=== PATIENT | female | born 1965 | race Caucasian/White ===

== ENCOUNTER 2017-02-06 16:44 | Inpatient (IN) ==
[2017-02-06] MEDS ORDERED: 0.9 % Sodium Chloride 2,000 ML IV ONE (17:59)
[2017-02-06] MEDS ORDERED: Ibuprofen 600 MG TABLET PO ONE (17:59)
[2017-02-06] MEDS ORDERED: Ipratropium/Albuterol Neb 3 ML IH ONE (18:02)
--- NOTE | 2017-02-06 18:15 | Emergency Department Note ---
Disposition Clinical Impression: Sepsis Qualifiers: Sepsis type: sepsis due to unspecified organism Qualified Code(s): A41.9 - Sepsis, unspecified organism UTI (urinary tract infection) Qualifiers: Urinary tract infection type: acute cystitis Hematuria presence: with hematuria Qualified Code(s): N30.01 - Acute cystitis with hematuria Disposition: Admitted As Inpatient Condition: Fair Referrals: Vern Carmichael, [Primary Care Provider] - Forms: ED Satisfaction Letter Time of Disposition: 19:51 SOB HPI - General Chief Complaint: ED Fever Stated Complaint: "thinks she has the flu and UTI" Time Seen by Provider: 02/06/17 17:36 Source: patient Mode of arrival: ambulatory Limitations: no limitations Nursing Notes Reviewed: Yes Vital Signs Reviewed: Yes - History of Present Illness 51-year-old female presents with worsening fever, cough that is nonproductive, shortness of breath, body aches and malaise for the last 3-5 days. She states that she has felt ill for the last month, but did feel better prior to getting worse again over the last week. She has no diabetes or immunocompromise. She has notes history of asthma. She has tried Tamiflu prescribed by her physician for suspected influenza, but was unable to keep it down due to emesis. She denies any abdominal pain. She does admit to dysuria that is similar to prior episodes of urinary tract infection. She denies any rashes or edema. She denies history of DVT or PE. Pt Subjective Complaint: shortness of breath - Related Data Home Medications Medication Instructions Recorded Confirmed Atorvastatin [Lipitor] 40 mg PO HS 05/23/16 02/06/17 Diclofenac Potassium 50 mg PO TID PRN 05/23/16 02/06/17 Fluticasone Propionate Nasal 2 spray NS DAILY PRN 05/23/16 02/06/17 [Flonase] Insulin Glargine,Hum.rec.anlog 22 unit SQ DAILY 05/23/16 02/06/17 [Lantus Solostar] Multivitamin [Multivitamins] 1 tab PO DAILY 05/23/16 02/06/17 Albuterol Sulfate [Proventil Hfa] 1 - 2 puff IH Q6H PRN 02/06/17 02/06/17 Budesonide/Formoterol 80/4.5 2 puff IH BID 02/06/17 02/06/17 [Symbicort 80/4.5] Dicyclomine [Bentyl] 10 mg PO QID PRN 02/06/17 02/06/17 Ketoconazole Shampoo [Nizoral 1 appl TP 3XW 02/06/17 02/06/17 Shampoo] Tolterodine Tartrate [Detrol] 1 mg PO BID 02/06/17 02/06/17 Valsartan/Hydrochlorothiazide 1 each PO DAILY 02/06/17 02/06/17 [Diovan Hct 320-25 mg Tablet] Allergies Allergy/AdvReac Type Severity Reaction Status Date / Time Oxycodone [From Percocet] AdvReac Fainting Verified 02/06/17 17:30 All systems ED: reviewed and negative except as stated. Past Medical History - Past Medical History Attestation: Yes The following information was validated with the patient. Source: patient Medical history: Reports: asthma, diabetes, hyperlipidemia, hypertension Psychiatric history: Reports: no psych history - Social History Smoking Status: Current every day smoker Smokeless Tobacco Status: No Alcohol use: Reports: occasionally Drug use: Reports: none Physical Exam - Head Head exam: atraumatic, normocephalic, normal inspection - Eye Eye exam: Present: normal appearance, PERRL, EOMI - ENT ENT exam: normal exam, normal oropharynx, mucous membranes moist - Neck Neck exam: Present: normal inspection, full ROM, trachea midline - Chest Chest inspection: Present: normal inspection, symmetric chest wall rise - Respiratory Mild rhonchi at the right base. Mild end expiratory wheeze bilaterally. No rales. Cardiovascular Cardiovascular exam: Present: Tachycardic, normal rhythm, normal heart sounds - Abdominal Exam Abdominal exam: Present: soft, Non-Tender. Absent: tenderness, distention, guarding, rebound, rigidity - Extremities Exam Extremities exam: Present: normal inspection, full ROM - Expanded Lower Extremity Exam Hip/Pelvis exam: Present: normal inspection, full ROM - Back Exam Back exam: Present: normal inspection, full ROM. Absent: tenderness, CVA tenderness (R), CVA tenderness (L) - Neurological Exam Neurological exam: Present: alert, oriented X3, CN II-XII intact - Psychiatric Psychiatric exam: Present: normal affect, normal mood - Skin Skin exam: Present: warm, dry, intact, normal color - General Limitations: no limitations General appearance: alert Course - Reevaluation(s) Reevaluation #1: Patient with urinary tract infection on labs. She is feeling much better after IV fluids and ibuprofen. No CVA tenderness. No abdominal tenderness. No colicky pain. The patient started on Rocephin. Admitted to the hospitalist for further management. Time: 21:10 Vital Signs Temperature 102.6 F H 02/06/17 17:31 Pulse Rate 128 02/06/17 17:31 Respiratory Rate 26 02/06/17 17:31 Blood Pressure 170/81 02/06/17 17:31 O2 Sat by Pulse Oximetry 91 L 02/06/17 17:31 Temperature 102.6 F H 02/06/17 17:31 Pulse Rate 85 02/06/17 20:06 Respiratory Rate 16 02/06/17 20:06 Blood Pressure 110/46 02/06/17 20:06 O2 Sat by Pulse Oximetry 98 02/06/17 20:06 Oxygen Delivery Oxygen Delivery Room Air Shortness of Breath/Dyspnea - Lab Data Result diagrams: 02/06/17 18:30 02/06/17 18:30 Lab Results 02/06/17 02/06/17 02/06/17 Range/Units 17:50 18:30 18:30 WBC 11.5 H (4.3-11.1) K/mcL RBC 5.29 H (3.82-4.97) M/mcL Hgb 15.6 H (11.5-15.4) g/dL Hct 45.4 H (35.3-44.9) % MCV 85.8 (83.0-100.0) fL MCH 29.5 (28.0-33.3) pg MCHC 34.4 (31.6-35.5) g/dL RDW 12.0 (11.5-14.5) % Plt Count 173 (140-400) K/mcL MPV 10.8 (9.4-12.4) fL Immature Gran % 0.7 (0-4) % Seg Neutrophils % 80.2 % Lymphocytes % 7.9 % Monocytes % 10.9 % Eosinophils % 0.0 % Basophils % 0.3 % Neutrophils # 9.2 H (1.6-8.9) K/mcL Lymphocytes # 0.9 (0.6-4.6) K/mcL Monocytes # 1.3 (0.0-1.3) K/mcL Eosinophils # 0.0 (0.0-0.6) K/mcL Basophils # 0.0 (0.0-0.2) K/mcL VBG pH (7.32-7.42) pH Units VBG pCO2 (41-51) mmHg VBG pO2 (25-40) mmHg VBG HCO3 (21-27) mEq/L Sodium 135 L (136-145) mEq/L Potassium 3.9 (3.5-4.5) mEq/L Chloride 96 L (98-109) mEq/L Carbon Dioxide 24 (19-29) mEq/L BUN 19 (7-20) mg/dL Creatinine 1.15 H (0.57-1.11) mg/dL Est GFR ( Amer) > 60 (> 60) Est GFR (Non-Af Amer) 50 L (> 60) BUN/Creatinine Ratio 17 (6-26) Glucose 392 H (70-99) mg/dL Calculated Osmolality 299 (280-300) Lactic Acid (0.5-2.2) mmol/L Calcium 8.7 (8.6-10.8) mg/dL Urine Color Dark Yellow (Yellow) Urine Clarity Cloudy A (Clear) Urine pH 6.0 (5.0-8.0) pH Units Ur Specific [place] > 1.030 H (1.010-1.025) Urine Protein 100 H (Neg-Trace) mg/dL Urine Glucose (UA) >=1000 H (Normal) mg/dL Urine Ketones 80 H (Negative) mg/dL Urine Blood Small H (Negative) Urine Nitrite Positive A (Negative) Urine Bilirubin Small H (Negative) Urine Urobilinogen Normal (Normal) mg/dL Ur Leukocyte Esterase Moderate H (Negative) Urine Microscopic RBC 5-15 H (0-3) per hpf Urine Microscopic WBC TNTC H (0-3) per hpf Ur Squamous Epith Cells Many H (None-Few) per lpf Urine Bacteria Many H (None-Few) per hpf Hyaline Casts None Seen (None-Few) per lpf Urine Yeast Few H (None Seen) per hpf Ur Culture Indicated? YES A (NO) 02/06/17 02/06/17 Range/Units 18:30 18:30 WBC (4.3-11.1) K/mcL RBC (3.82-4.97) M/mcL Hgb (11.5-15.4) g/dL Hct (35.3-44.9) % MCV (83.0-100.0) fL MCH (28.0-33.3) pg MCHC (31.6-35.5) g/dL RDW (11.5-14.5) % Plt Count (140-400) K/mcL MPV (9.4-12.4) fL Immature Gran % (0-4) % Seg Neutrophils % % Lymphocytes % % Monocytes % % Eosinophils % % Basophils % % Neutrophils # (1.6-8.9) K/mcL Lymphocytes # (0.6-4.6) K/mcL Monocytes # (0.0-1.3) K/mcL Eosinophils # (0.0-0.6) K/mcL Basophils # (0.0-0.2) K/mcL VBG pH 7.47 H (7.32-7.42) pH Units VBG pCO2 41 (41-51) mmHg VBG pO2 50 H (25-40) mmHg VBG HCO3 29.8 H (21-27) mEq/L Sodium (136-145) mEq/L Potassium (3.5-4.5) mEq/L Chloride (98-109) mEq/L Carbon Dioxide (19-29) mEq/L BUN (7-20) mg/dL Creatinine (0.57-1.11) mg/dL Est GFR ( Amer) (> 60) Est GFR (Non-Af Amer) (> 60) BUN/Creatinine Ratio (6-26) Glucose (70-99) mg/dL Calculated Osmolality (280-300) Lactic Acid 1.3 (0.5-2.2) mmol/L Calcium (8.6-10.8) mg/dL Urine Color (Yellow) Urine Clarity (Clear) Urine pH (5.0-8.0) pH Units Ur Specific [place] (1.010-1.025) Urine Protein (Neg-Trace) mg/dL Urine Glucose (UA) (Normal) mg/dL Urine Ketones (Negative) mg/dL Urine Blood (Negative) Urine Nitrite (Negative) Urine Bilirubin (Negative) Urine Urobilinogen (Normal) mg/dL Ur Leukocyte Esterase (Negative) Urine Microscopic RBC (0-3) per hpf Urine Microscopic WBC (0-3) per hpf Ur Squamous Epith Cells (None-Few) per lpf Urine Bacteria (None-Few) per hpf Hyaline Casts (None-Few) per lpf Urine Yeast (None Seen) per hpf Ur Culture Indicated? (NO) - EKG Data EKG attestation: Yes I reviewed and interpreted this EKG. EKG results narrative: Sinus tachycardia at 111 with normal axis and intervals. No ST elevation or depression. There is incomplete right bundle-branch block. No pathologic Q waves. No EKG available. Attestation Statement - Attestation Attestation: I examined this patient and my medical decision-making was reviewed with the BUSINESS ADMINISTRATOR/PA/Advanced Practice Nurse/Resident Physician. I agree with the documented findings, disposition and treatment plan as described except to the extent set forth below.
[2017-02-06 18:24] LABS: Bilirubin,Urine Small (Negative); Blood,Urine Small (Negative); Clarity,Urine Cloudy (Clear); Color,Urine Dark Yellow (Yellow); Glucose,Urine (UA) >=1000 mg/dL (Normal); Ketones,Urine 80 mg/dL (Negative); Leukocyte Esterase,Urine Moderate (Negative); Nitrite,Urine Positive (Negative); Protein,Urine 100 mg/dL (Neg-Trace); Specific Gravity,Urine > 1.030 (1.010-1.025); Urobilinogen,Urine Normal (Normal)
[2017-02-06 18:38] LABS: Bacteria,Urine Many per hpf (None-Few); Hyaline Casts,Urine None Seen per lpf (None-Few); Squamous Epithelial Cell,Urine Many per lpf (None-Few); WBC,Urine TNTC per hpf (0-3)
[2017-02-06 18:39] LABS: Basophils % 0.3 %; Hematocrit 45.4 % (35.3-44.9); Hemoglobin 15.6 g/dL (11.5-15.4); Immature Granulocytes % 0.7 % (0-4); Lymphocytes # 0.9 K/mcL (0.6-4.6); Lymphocytes % 7.9 %; Mean Corpuscular HGB Conc 34.4 g/dL (31.6-35.5); Mean Corpuscular Hemoglobin 29.5 pg (28.0-33.3); Mean Corpuscular Volume 85.8 fL (83.0-100.0); Mean Platelet Volume 10.8 fL (9.4-12.4); Monocytes # 1.3 K/mcL (0.0-1.3); Monocytes % 10.9 %; Platelet Count 173 K/mcL (140-400); Red Blood Count 5.29 M/mcL (3.82-4.97); Segmented Neutrophils % 80.2 %
[2017-02-06 18:52] LABS: BUN/Creatinine Ratio 17 (6-26); Blood Urea Nitrogen 19 mg/dL (7-20); Calcium 8.7 mg/dL (8.6-10.8); Carbon Dioxide 24 mEq/L (19-29); Chloride 96 mEq/L (98-109); Glucose 392 mg/dL (70-99); Osmolality,Calculated 299 (280-300); Potassium 3.9 mEq/L (3.5-4.5); Sodium 135 mEq/L (136-145); eGFR For African Americans > 60 (> 60); eGFR For Non-African Americans 50 (> 60)
[2017-02-06 18:58] LABS: Yeast,Urine Few per hpf (None Seen)
[2017-02-06 18:59] LABS: VBG HCO3 29.8 mEq/L (21-27); VBG PH 7.47 pH Units (7.32-7.42)
[2017-02-06 19:10] LABS: Neutrophils # 9.2 K/mcL (1.6-8.9)
[2017-02-06] MEDS ORDERED: 0.9 % Sodium Chloride 1,000 ML IV ONE (19:26)
[2017-02-07] MEDS ORDERED: Naloxone 0.4 MG/ML INJ IVP PRN (04:08)
[2017-02-07] MEDS ORDERED: MOM Conc 10 ML UD.LIQ PO PRN (04:23)
[2017-02-07] MEDS ORDERED: Acetaminophen 325 MG TABLET PO PRN ×2 (04:23→11:47)
[2017-02-07] MEDS ORDERED: Ondansetron ODT 4 MG TAB.RAPDIS SL PRN (04:23)
[2017-02-07] MEDS ORDERED: *HR* HYDROcodone/Acet 5/325 mg TABLET PO PRN (04:25)
[2017-02-07] MEDS ORDERED: Ipratropium/Albuterol Neb 3 ML IH PRN (04:27)
[2017-02-07] MEDS ORDERED: Benzonatate 100 MG CAPSULE PO PRN (04:28)
[2017-02-07] MEDS ORDERED: Fluticasone Propionate Nasal 50 MCG/SPRAY BOTTLE NS PRN (04:28)
[2017-02-07] MEDS ORDERED: *HR* Dextrose 50 % in Water (Syg) 50 ML SYRINGE IVP PRN (04:31)
[2017-02-07] MEDS ORDERED: Dextrose Gel 15 GM PO PRN ×2 (04:31)
[2017-02-07] MEDS ORDERED: D5% in Water 1,000 ML IV PRN (04:31)
--- NOTE | 2017-02-07 04:53 | Event Note ---
Date of Encounter: 02/07/17 Time of Encounter: 04:49 Patient seen and examined his lpn or medical assistant. Patient presents with UTI with sepsis. No CVA tenderness. She is hemodynamically stable after 2 L of normal saline. Start ceftriaxone. Check urine and blood cultures. She was febrile 102.6 admission.
[2017-02-07] MEDS: *HR* Heparin 5,000 UNIT/ML VIAL SQ SCH ×3 (05:23→20:44)
[2017-02-07 06:05] LABS: Basophils % 0.4 %; Eosinophils # 0.1 K/mcL (0.0-0.6); Eosinophils % 0.8 %; Hemoglobin 14.6 g/dL (11.5-15.4); Hemoglobin A1C 13.7 %; Immature Granulocytes % 0.5 % (0-4); Lymphocytes # 1.5 K/mcL (0.6-4.6); Mean Corpuscular HGB Conc 33.2 g/dL (31.6-35.5); Mean Corpuscular Hemoglobin 28.9 pg (28.0-33.3); Mean Platelet Volume 10.5 fL (9.4-12.4); Monocytes % 10.6 %; Neutrophils # 6.7 K/mcL (1.6-8.9); Platelet Count 167 K/mcL (140-400); Red Blood Count 5.06 M/mcL (3.82-4.97); Red Cell Distribution Width 12.2 % (11.5-14.5); Segmented Neutrophils % 71.7 %
[2017-02-07 06:07] LABS: BUN/Creatinine Ratio 21 (6-26); Blood Urea Nitrogen 19 mg/dL (7-20); Calcium 8.3 mg/dL (8.6-10.8); Carbon Dioxide 28 mEq/L (19-29); Chloride 100 mEq/L (98-109); Glucose 283 mg/dL (70-99); Magnesium 1.3 mg/dL (1.6-2.6); Osmolality,Calculated 297 (280-300); Phosphorous 2.6 mg/dL (2.3-4.7); Potassium 3.7 mEq/L (3.5-4.5); Sodium 137 mEq/L (136-145); eGFR For African Americans > 60 (> 60); eGFR For Non-African Americans > 60 (> 60)
[2017-02-07] MEDS: 0.9 % Sodium Chloride 1,000 ML IVC SCH ×3 (06:23→23:50)
--- NOTE | 2017-02-07 06:27 | Internal Med History&Physical ---
Date of Encounter: 02/07/17 Time of Encounter: 06:17 Assessment and Plan (1) UTI (urinary tract infection) Current visit: Yes Status: Acute Patient were saying fever and chills over the last week. Patient reports increased pressure with urination, increase frequency, and urinary incontinence. UA cloudy and positive for 4 nitrates, RBCs, WBCs, and bacteria. No CVA tenderness on exam. Will treat urinary tract infection with ceftriaxone. 1. Ceftriaxone 1g daily 2. Urine culture pending 3. Monitor vitals and labs Qualifiers: Urinary tract infection type: acute cystitis Hematuria presence: with hematuria Qualified Code(s): N30.01 - Acute cystitis with hematuria (2) Sepsis Current visit: Yes Status: Acute Patient presented with elevated temperature, tachycardia,, and tachypnea. With UTI, patient meets criteria for sepsis. Patient given 2L IV fluids in the ED. Lactic acid 1.3. Will continue maintenance IV fluids and treat underlying infection. 1. Monitor vital signs 2. Maintenance IV fluids 3. Antibiotics Qualifiers: Sepsis type: sepsis due to unspecified organism Qualified Code(s): A41.9 - Sepsis, unspecified organism (3) Upper respiratory infection Current visit: Yes Status: Acute Patient with nonproductive cough, runny nose, congestion, and malaise. Flu swab negative. Patient likely has a viral upper respiratory infection. Will provide supportive care. Qualifiers: URI type: unspecified viral URI Qualified Code(s): J06.9 - Acute upper respiratory infection, unspecified; B97.89 - Other viral agents as the cause of diseases classified elsewhere (4) Acute kidney injury Current visit: Yes Status: Acute Patient with creatinine of 1.13. She denies any history of kidney disease. Will give IVF fluids and monitor. 1. IVF 2. Monitor kidny function 3. Avoid nephrotoxic drugs. (5) Diabetes Current visit: Yes Status: Acute Patient with type II diabetes. Patient takes basal insulin of 22 units at home daily. Inpatient will check blood glucose with meals and at bedtime. We will give patient lower basal insulin dose with low-dose sliding scale intensity for correction. 1. Accuchecks ACHS 2. Levemir 11 units daily 3. Low intensity sliding scale insulin Qualifiers: Diabetes mellitus type: type 2 Diabetes mellitus complication status: with unspecified complications Diabetes mellitus terminal worker insulin use: with terminal worker use Qualified Code(s): E11.8 - Type 2 diabetes mellitus with unspecified complications; Z79.4 - retirement (current) use of insulin (6) Hypertension Current visit: Yes Status: Acute Shuttle history of hypertension. Currently patient's blood pressures have been on the lower side. We will hold home hypertension medications at this time and continue to monitor blood pressures 1. Monitor blood pressures 2. Restart home blood pressure medications when appropriate. Qualifiers: Hypertension type: essential hypertension Qualified Code(s): I10 - Essential (primary) hypertension (7) COPD (chronic obstructive pulmonary disease) Current visit: Yes Status: Acute She reports that she has never been diagnosed with COPD. However patient is a current smoker, and does use COPD medications at home. We will continue home medications. Duoneb breathing treatments as needed. 1. Continue home medications 2. Duoneb breathing treatments prn 3. Supplemental oxygen as needed Qualifiers: COPD type: unspecified COPD Qualified Code(s): J44.9 - Chronic obstructive pulmonary disease, unspecified (8) Tobacco use Current visit: Yes Status: Acute (9) DVT prophylaxis Current visit: Yes Status: Acute Heparin for DVT prophylaxis Internal Medicine - H&P: HPI Chief complaint: Flu like symptoms Admitted From: Emergency Dept Plans for Post Hospital Care: Home History of present illness: Ms. Bob is a 51 year old female with past medical history including asthma, diabetes, hyerlipidemia, hypertension, and current tobacco use. Patient presents the emergency department today with worsening nonproductive cough, fever, and body aches for the past 3 days. Patient reports that for the past month she has been feeling ill however she was starting to improve until things worsened over the last couple days. Patient reports fever chills, headache, runny nose, nonproductive cough, all over body aches, nausea and vomiting, as well as increased pressure with urination, increase urinary frequency, and urinary incontinence. She reports that she has been unable to take any medications Friday because of the nausea and vomiting. Patient denies any vision changes, sore throat, shortness of breath, chest pain, abdominal pain, changes in bowel function. Patient attempted to take Tamiflu but was not able to keep it down. Nothing has made her feel any better. In the ED, patient had a temperature of 102.6. Tachycardic with a heart rate of 128. Tachypneic with respiratory rate 22. Blood pressure in the 110s-120s/ 40s. Initially decreased oxygen saturation on room air. Labs revealed WBC of 11.5, sodium 135, creatinine 1.15, glucose 392. UA cloudy with positive protein , glucose, ketones, blood, nitrites, bilirubin, leukocyte esterease, RBC, WBC and bacteria. Flu swab negative. CXR showed no acute abnormality. EKG showed sinus tachycardi with no ST elevation or depression. On exam, patient was easily arousable and could answer questions appropriately. She reported that she felt much better after fluids and ibuprofen. Heart was regular rate and rhythm. Lungs were clear to auscultation bilaterally. She reports she was SOB on admission but now she feels much better after the breathing treatment. Abdomen soft, non-tender. 1+ pitting edema on exam. Past Med Surg Social Fam HX - Past Medical History Medical history: asthma, diabetes, hyperlipidemia, hypertension Psychiatric history: no psych history - Social History Smoking Status: Current every day smoker Packs per day: 1 Smokeless Tobacco Status: No Alcohol use: occasionally Drug use: none - Family History Father Hx Family Cardiac Disorders: Yes Brother Hx Family Endocrine Disorder: Yes Internal Medicine - H&P: Meds Atorvastatin [Lipitor] 40 mg PO HS 05/23/16 [History] Diclofenac Potassium 50 mg PO TID PRN 05/23/16 [History] Fluticasone Propionate Nasal [Flonase] 2 spray NS DAILY PRN 05/23/16 [History] Insulin Glargine,Hum.rec.anlog [Lantus Solostar] 22 unit SQ DAILY 05/23/16 [ History] Multivitamin [Multivitamins] 1 tab PO DAILY 05/23/16 [History] Albuterol Sulfate [Proventil Hfa] 1 - 2 puff IH Q6H PRN 02/06/17 [History] Budesonide/Formoterol 80/4.5 [Symbicort 80/4.5] 2 puff IH BID 02/06/17 [History ] Dicyclomine [Bentyl] 10 mg PO QID PRN 02/06/17 [History] Ketoconazole Shampoo [Nizoral Shampoo] 1 appl TP 3XW 02/06/17 [History] Tolterodine Tartrate [Detrol] 1 mg PO BID 02/06/17 [History] Valsartan/Hydrochlorothiazide [Diovan Hct 320-25 mg Tablet] 1 each PO DAILY 08/17 [History] Allergies Oxycodone [From Percocet] Adverse Reaction (Verified 02/06/17 17:30) Fainting All Systems PM: A 10-system review of systems was performed and is negative for pertinent findings except as documented above in the HPI. - Constitutional Constitutional: chills, fatigue, fever(s), malaise, weakness, no falls - EENT Eyes: no blurry vision, no change in vision Nose, mouth and throat: nasal congestion, nasal discharge, nasal obstruction - Cardiovascular Cardiovascular ROS IM: edema, no chest pain, no claudication, no diaphoresis, no irregular heart rhythm, no palpitations - Respiratory Respiratory: cough, dyspnea, wheezing, no hemoptysis, no excessive phlegm production, no change in phlegm color - Gastrointestinal Gastrointestinal: constipation, nausea, vomiting, no abdominal pain, no diarrhea , no hematemesis, no hematochezia, no melena - Genitourinary Genitourinary: urinary frequency, urinary incontinence, urinary urgency - Musculoskeletal Musculoskeletal ROS IM: myalgias - Neurological Neurological ROS: no confusion, no dizziness, no headache(s), no loss of vision , no numbness, no weakness - Constitutional Vitals: Temp Pulse Resp BP Pulse Ox 98.2 F 78 16 119/82 95 02/07/17 05:08 02/07/17 05:08 02/07/17 05:08 02/07/17 05:08 02/07/17 05:08 General appearance: Present: A&O X 3, pleasant, no acute distress, answers questions appropriately - Head Head exam: Present: atraumatic, normal inspection, normocephalic - Eye Eye exam: Present: EOMI, normal appearance, PERRL - ENT ENT exam: Present: mucous membranes moist - Respiratory Respiratory exam: Present: CTAB. Absent: decreased breath sounds, rales, respiratory distress, rhonchi, wheezes - Cardiovascular Cardiovascular exam: Present: RRR - GI/Abdominal GI/Abdominal exam: Present: soft. Absent: distended, firm, rebound, rigid, tenderness - Extremities Exam Extremities exam: Present: pedal edema - Neurological Exam Neurological exam: Present: alert, CN II-XII intact, oriented X3, no focal deficits Internal Med - H&P Results - Labs CBC & Chem 7: 02/07/17 05:36 02/07/17 05:36 Labs: Short CBC 02/07/17 Range/Units 05:36 WBC 9.3 (4.3-11.1) K/mcL Hgb 14.6 (11.5-15.4) g/dL Hct 44.0 (35.3-44.9) % Plt Count 167 (140-400) K/mcL Neutrophils # 6.7 (1.6-8.9) K/mcL BMP 02/07/17 05:36 Sodium 137 Potassium 3.7 Chloride 100 Carbon Dioxide 28 BUN 19 Creatinine 0.91 Glucose 283 H Calcium 8.3 L - Impressions ITS Impressions Chest X-Ray 02/06/17 18:01 IMPRESSION: No acute process. D/ / Sara Thompson MD / Sara Thompson MD Interpreting Provider: Sara Thompson MD
[2017-02-07] MEDS: Budesonide/Formoterol 80/4.5 MDI IH SCH ×2 (08:17→22:12)
[2017-02-07] MEDS: Insulin LISPRO 300 UNITS/3 ML VIAL SQ SCH ×4 (08:56→20:51)
[2017-02-07] MEDS: Magnesium Oxide 400 MG TABLET PO SCH ×2 (08:57→20:44)
[2017-02-07] MEDS ORDERED: Valsartan 160 MG TABLET PO SCH (09:00)
[2017-02-07] MEDS ORDERED: Insulin DETEMIR 100 UNIT/ML X5UNITS SQ SCH (09:00)
[2017-02-07 09:11] LABS: Acinetobacter baumannii by PCR Not Detected (Not Detect); Enterococcus by PCR Not Detected (Not Detect); Escherichia coli by PCR ***DETECTED*** (Not Detect); Staphylococcus aureus by PCR Not Detected (Not Detect); Streptococcus agalactiae(B)PCR Not Detected (Not Detect); Streptococcus by PCR Not Detected (Not Detect); Streptococcus pneumoniae PCR Not Detected (Not Detect); Streptococcus pyogenes (A) PCR Not Detected (Not Detect); blaKPC Carbapenem-Resist Gene Not Detected (Not Detect)
[2017-02-07 09:12] LABS: Candida albicans by PCR Not Detected (Not Detect); Candida glabrata by PCR Not Detected (Not Detect); Candida krusei by PCR Not Detected (Not Detect); Candida parapsilosis by PCR Not Detected (Not Detect); Candida tropicalis by PCR Not Detected (Not Detect); Klebsiella oxytoca by PCR Not Detected (Not Detect); Klebsiella pneumoniae by PCR Not Detected (Not Detect); Pseudomonas aeruginosa by PCR Not Detected (Not Detect); Serratia marcescens by PCR Not Detected (Not Detect)
[2017-02-07] MEDS: Tolterodine LA (24 HR) 2 MG CAP.ER.24H PO SCH (10:16)
--- NOTE | 2017-02-07 15:33 | Internal Med Progress Note ---
<Morenita Bailey Nic - Last Filed: 02/07/17 16:19> Date of Encounter: 02/07/17 Time of Encounter: 10:30 - Assessment and plan (1) Sepsis Current Visit: Yes Status: Acute Assessment and plan: Patient presented to hospital with temp 102.6, HR 126, and RR 26 Lactic acid 1.3 UA revealed UTI Blood culture and urine culture positive for E. coli Continue ceftrixone (day 2) Continue IVF Monitor patient closely Patient is high risk due to sepsis Qualifiers: Sepsis type: Escherichia coli Qualified Code(s): A41.51 - Sepsis due to Escherichia coli [E. coli] (2) Bacteremia due to Escherichia coli Current Visit: Yes Status: Acute Assessment and plan: See plan as above (3) UTI (urinary tract infection) Current Visit: Yes Status: Acute Assessment and plan: Plan as above Qualifiers: Urinary tract infection type: acute cystitis Hematuria presence: with hematuria Qualified Code(s): N30.01 - Acute cystitis with hematuria (4) Acute kidney injury Current Visit: Yes Status: Acute Assessment and plan: Cr 1.15 upon presentation to hospital, however Cr down to 0.91 today Continue IVF Monitor renal function (5) Diabetes Current Visit: Yes Status: Acute Assessment and plan: Patient's glucose 392 upon presentation to hospital A1C is 13.7 Patient admits to peripheral neuropathy Levemir 22 SQ daily, Low dose SS ACHS Discussed diet and exercise to control blood sugars Patient verbalized understanding She will require outpatient screening for nephropathy and retinopathy Qualifiers: Diabetes mellitus type: type 2 Diabetes mellitus complication status: with unspecified complications Diabetes mellitus local intermodal truck driver insulin use: with intermediate use Qualified Code(s): E11.8 - Type 2 diabetes mellitus with unspecified complications; Z79.4 - local intermodal truck driver (current) use of insulin (6) Hypertension Current Visit: Yes Status: Acute Assessment and plan: Stable at this time, 115/66 Continue to hold valsartan Will restart should BP become elevated Qualifiers: Hypertension type: essential hypertension Qualified Code(s): I10 - Essential (primary) hypertension (7) Tobacco use Current Visit: Yes Status: Acute (8) DVT prophylaxis Current Visit: Yes Status: Acute Assessment and plan: Heparin 5,000 SQ - Time Spent With Patient 25 - 35 minutes (30 minutes including time with patient and coordinating care) - Subjective Interval history: Patient reports that she is feeling much better today. She admits to one episode of chills this morning around 04:00. Patient states that she has had a month of fevers that have been relaxing and remitting. She states that she recently was treated for bronchitis. Denies any other recent infections. Patient admits to increased frequency of urination, increased urgency of urination, and small amount of dysuria at end of void. Patient admits to multiple episodes of vomiting prior to presentation to hospital. Patient admits to right sided back pain at the level of T12. She states that this is back pain is chronic. Denies hematuria or abdominal pain. Patient denies chest pain, dyspnea, abdominal pain, extremity swelling. - Constitutional Vitals: Temp Pulse Resp BP Pulse Ox 98.2 F 75 16 121/73 97 02/07/17 11:36 02/07/17 11:36 02/07/17 11:36 02/07/17 11:36 02/07/17 11:36 General appearance: Present: A&O X 3, morbidly obese, pleasant, no acute distress, answers questions appropriately - Head Head exam: Present: atraumatic, normocephalic - Eye Eye exam: Present: PERRL, conjuntiva pink, sclera anicteric - Neck Neck exam general surgery: Present: supple, trachea midline. Absent: lymphadenopathy - Respiratory Respiratory exam: Present: CTAB. Absent: accessory muscle use, rales, rhonchi, wheezes - Cardiovascular Cardiovascular exam: Present: RRR, +S1, +S2. Absent: diastolic murmur, gallop, rubs, systolic murmur - GI/Abdominal GI/Abdominal exam: Present: normal bowel sounds, soft, no peritoneal signs. Absent: distended, tenderness - Extremities Exam Extremities exam: Present: warm, radial pulses palpable and symetrical. Absent : calf tenderness, cyanotic, pedal edema - Back Exam Back exam: Absent: CVA tenderness (L), CVA tenderness (R) - Neurological Exam Neurological exam: Present: CN II-XII intact, oriented X3, no focal deficits. Absent: pronater drift, facial droop, speech deficit - Skin Skin exam: Present: dry, intact Internal Medicine: Result - Labs CBC & Chem 7: 02/07/17 05:36 02/07/17 05:36 Labs: Short CBC 02/07/17 Range/Units 05:36 WBC 9.3 (4.3-11.1) K/mcL Hgb 14.6 (11.5-15.4) g/dL Hct 44.0 (35.3-44.9) % Plt Count 167 (140-400) K/mcL Neutrophils # 6.7 (1.6-8.9) K/mcL BMP 02/07/17 05:36 Sodium 137 Potassium 3.7 Chloride 100 Carbon Dioxide 28 BUN 19 Creatinine 0.91 Glucose 283 H Calcium 8.3 L - Impressions Chest X-Ray 02/06/17 18:01 IMPRESSION: No acute process. D/ / Sara Thompson MD / Sara Thompson MD Interpreting Provider: Sara Thompson MD Consult Discharge Plan - Plan Referrals: Vern Carmichael DO [Primary Care Provider] - 02/17/17 10:30 am (Please follow up as schedule...Please take discharge paper works and lab works...) <Rai Khalil P - Last Filed: 02/07/17 18:27> - Constitutional Vitals: Temp Pulse Resp BP Pulse Ox 98.4 F 64 16 119/79 92 L 02/07/17 16:26 02/07/17 16:26 02/07/17 16:26 02/07/17 16:26 02/07/17 16:26 Internal Medicine: Result - Labs CBC & Chem 7: 02/07/17 05:36 02/07/17 05:36 Labs: Short CBC 02/07/17 Range/Units 05:36 WBC 9.3 (4.3-11.1) K/mcL Hgb 14.6 (11.5-15.4) g/dL Hct 44.0 (35.3-44.9) % Plt Count 167 (140-400) K/mcL Neutrophils # 6.7 (1.6-8.9) K/mcL BMP 02/07/17 05:36 Sodium 137 Potassium 3.7 Chloride 100 Carbon Dioxide 28 BUN 19 Creatinine 0.91 Glucose 283 H Calcium 8.3 L - Attending Attestation please treat this as event note. not a billable note. I examined this patient and my medical decision-making was reviewed with the LEGAL ENTITY CONTROLLER/PA/Advanced Practice Nurse/Resident Physician. I agree with the documented findings, disposition and treatment plan as described except to the extent set forth below.
--- NOTE | 2017-02-07 18:00 | Electrocardiograph Report ---
[place] [id number] Test Date: 2017-02-06 Pat Name: Jerilyn Bob Department: 105 Room: 2A Gender: F Screed Person: : 1965 Requested By: Angelo Gonzalez Order Number: [id number] Reading MD: Ghislaine Nguyen Measurements Intervals [place] Rate: 111 P: 37 VT: 146 QRS: 16 QRSD: 110 T: 31 QT: 328 QTc: 393 Interpretive Statements SINUS TACHYCARDIA INCOMPLETE RIGHT BUNDLE BRANCH BLOCK ABNORMAL RHYTHM ECG Electronically Signed On 02-07-2017 17:58:51 EST by Ghislaine Nguyen
[2017-02-07] MEDS: *HR* HYDROcodone/Acet 5/325 mg TABLET PO PRN (23:49)
[2017-02-08] MEDS: *HR* Heparin 5,000 UNIT/ML VIAL SQ SCH ×3 (05:03→23:56)
[2017-02-08 07:26] LABS: Basophils % 0.5 %; Eosinophils # 0.2 K/mcL (0.0-0.6); Eosinophils % 2.6 %; Hematocrit 39.1 % (35.3-44.9); Immature Granulocytes % 0.5 % (0-4); Lymphocytes # 1.9 K/mcL (0.6-4.6); Lymphocytes % 28.8 %; Mean Corpuscular HGB Conc 33.2 g/dL (31.6-35.5); Mean Corpuscular Hemoglobin 29.1 pg (28.0-33.3); Mean Corpuscular Volume 87.5 fL (83.0-100.0); Mean Platelet Volume 10.6 fL (9.4-12.4); Monocytes # 0.9 K/mcL (0.0-1.3); Monocytes % 13.5 %; Neutrophils # 3.5 K/mcL (1.6-8.9); Platelet Count 158 K/mcL (140-400); Red Blood Count 4.47 M/mcL (3.82-4.97); Red Cell Distribution Width 12.2 % (11.5-14.5); Segmented Neutrophils % 54.1 %
[2017-02-08 07:33] LABS: BUN/Creatinine Ratio 24 (6-26); Blood Urea Nitrogen 18 mg/dL (7-20); Calcium 7.9 mg/dL (8.6-10.8); Carbon Dioxide 23 mEq/L (19-29); Chloride 106 mEq/L (98-109); Glucose 205 mg/dL (70-99); Magnesium 1.2 mg/dL (1.6-2.6); Osmolality,Calculated 296 (280-300); Phosphorous 2.7 mg/dL (2.3-4.7); Potassium 3.8 mEq/L (3.5-4.5); Sodium 139 mEq/L (136-145); eGFR For African Americans > 60 (> 60); eGFR For Non-African Americans > 60 (> 60)
[2017-02-08] MEDS: Insulin LISPRO 300 UNITS/3 ML VIAL SQ SCH ×4 (08:18→21:54)
[2017-02-08] MEDS: *HR* HYDROcodone/Acet 5/325 mg TABLET PO PRN ×2 (08:19→21:56)
[2017-02-08] MEDS: Magnesium Oxide 400 MG TABLET PO SCH (08:19)
[2017-02-08] MEDS: Tolterodine LA (24 HR) 2 MG CAP.ER.24H PO SCH (08:19)
[2017-02-08] MEDS: Insulin DETEMIR 100 UNIT/ML X5UNITS SQ SCH (08:19)
[2017-02-08] MEDS: 0.9 % Sodium Chloride 1,000 ML IVC SCH (08:19)
[2017-02-08] MEDS: Budesonide/Formoterol 80/4.5 MDI IH SCH ×2 (08:26→23:09)
--- NOTE | 2017-02-08 08:42 | Internal Med Progress Note ---
<LeoMorenitasanju Lucero - Last Filed: 02/08/17 08:38> Date of Encounter: 02/08/17 Time of Encounter: 07:45 - Assessment and plan (1) Sepsis Current Visit: Yes Status: Acute Assessment and plan: Patient presented to hospital with temp 102.6, HR 126, and RR 26 Lactic acid 1.3 UA revealed UTI Blood culture and urine culture positive for E. coli 02/08/17 Continue ceftrixone (day#3) Leukocytosis has resolved Repeat blood cultures are not indicated at this time as the source is known and leukocytosis is resolved Continue IVF Monitor patient closely Patient is high risk due to sepsis Qualifiers: Sepsis type: Escherichia coli Qualified Code(s): A41.51 - Sepsis due to Escherichia coli [E. coli] (2) Bacteremia due to Escherichia coli Current Visit: Yes Status: Acute Assessment and plan: See plan as above (3) UTI (urinary tract infection) Current Visit: Yes Status: Acute Assessment and plan: Plan as above Qualifiers: Urinary tract infection type: acute cystitis Hematuria presence: with hematuria Qualified Code(s): N30.01 - Acute cystitis with hematuria (4) Hypomagnesemia Current Visit: Yes Status: Acute Assessment and plan: Magnesium 1.2 today despite oral replacement yesterday MgSO4 2 g IV today Will monitor (5) Acute kidney injury Current Visit: Yes Status: Acute Assessment and plan: Resolved Continue IVF Monitor renal function (6) Diabetes Current Visit: Yes Status: Acute Assessment and plan: Patient's glucose 392 upon presentation to hospital A1C is 13.7 Patient admits to peripheral neuropathy Discussed diet and exercise to control blood sugars Patient verbalized understanding She will require outpatient screening for nephropathy and retinopathy 02/08/17 Fasting glucose 205 today Levemir 22 SQ daily, Low dose SS ACHS Qualifiers: Diabetes mellitus type: type 2 Diabetes mellitus complication status: with unspecified complications Diabetes mellitus emt intermediate insulin use: with residential use Qualified Code(s): E11.8 - Type 2 diabetes mellitus with unspecified complications; Z79.4 - terminal block assembler (current) use of insulin (7) Hypertension Current Visit: Yes Status: Acute Assessment and plan: Stable at this time, 118/78 Continue to hold valsartan Will restart should BP become elevated Qualifiers: Hypertension type: essential hypertension Qualified Code(s): I10 - Essential (primary) hypertension (8) Tobacco use Current Visit: Yes Status: Acute (9) DVT prophylaxis Current Visit: Yes Status: Acute Assessment and plan: Heparin 5,000 SQ - Time Spent With Patient 25 - 35 minutes (30 minutes including time with patient and coordinating care) - Subjective Interval history: Patient reports that she is feeling much better today. She states that she was feeling dizzy yesterday, but this has resolved. Admits urine is dark orange. Admits to mild pain to "tailbone" that resolved following moving about her room yesterday. Denies chest pain, dyspnea, abdominal pain, flank pain, dysuria. - Constitutional Vitals: Temp Pulse Resp BP Pulse Ox 98.3 F 68 16 118/78 99 02/08/17 06:50 02/08/17 06:50 02/08/17 08:27 02/08/17 06:50 02/08/17 08:27 General appearance: Present: A&O X 3, morbidly obese, pleasant, no acute distress, answers questions appropriately - Head Head exam: Present: atraumatic, normocephalic - Eye Eye exam: Present: PERRL, conjuntiva pink, sclera anicteric Pupils: Present: PERRL - Neck Neck exam general surgery: Present: supple, trachea midline. Absent: lymphadenopathy - Respiratory Respiratory exam: Present: CTAB. Absent: accessory muscle use, rales, rhonchi, wheezes - Cardiovascular Cardiovascular exam: Present: RRR, +S1, +S2. Absent: diastolic murmur, gallop, rubs, systolic murmur - GI/Abdominal GI/Abdominal exam: Present: normal bowel sounds, soft, no peritoneal signs. Absent: distended, tenderness - Extremities Exam Extremities exam: Present: warm, radial pulses palpable and symetrical. Absent : calf tenderness, cyanotic, pedal edema - Back Exam Back exam: Absent: CVA tenderness (L), CVA tenderness (R) - Neurological Exam Neurological exam: Present: CN II-XII intact, oriented X3, no focal deficits. Absent: facial droop, speech deficit - Skin Skin exam: Present: dry, intact Internal Medicine: Result - Labs CBC & Chem 7: 02/08/17 06:45 02/08/17 06:45 Labs: Short CBC 02/08/17 Range/Units 06:45 WBC 6.5 (4.3-11.1) K/mcL Hgb 13.0 D (11.5-15.4) g/dL Hct 39.1 (35.3-44.9) % Plt Count 158 (140-400) K/mcL Neutrophils # 3.5 (1.6-8.9) K/mcL BMP 02/08/17 06:45 Sodium 139 Potassium 3.8 Chloride 106 Carbon Dioxide 23 BUN 18 Creatinine 0.74 Glucose 205 H Calcium 7.9 L Consult Discharge Plan - Plan Referrals: Vern Carmichael DO [Primary Care Provider] - 02/17/17 10:30 am (Please follow up as schedule...Please take discharge paper works and lab works...) <Rai Khalil P - Last Filed: 02/08/17 18:10> - Constitutional Vitals: Temp Pulse Resp BP Pulse Ox 98.1 F 77 18 118/74 95 02/08/17 16:19 02/08/17 16:19 02/08/17 16:19 02/08/17 16:19 02/08/17 16:19 Internal Medicine: Result - Labs CBC & Chem 7: 02/08/17 06:45 02/08/17 06:45 Labs: Short CBC 02/08/17 Range/Units 06:45 WBC 6.5 (4.3-11.1) K/mcL Hgb 13.0 D (11.5-15.4) g/dL Hct 39.1 (35.3-44.9) % Plt Count 158 (140-400) K/mcL Neutrophils # 3.5 (1.6-8.9) K/mcL [facility] 02/08/17 06:45 Sodium 139 Potassium 3.8 Chloride 106 Carbon Dioxide 23 BUN 18 Creatinine 0.74 Glucose 205 H Calcium 7.9 L - Attending Attestation I examined this patient and my medical decision-making was reviewed with the STATISTICS INTERN/PA/Advanced Practice Nurse/Resident Physician. I agree with the documented findings, disposition and treatment plan as described except to the extent set forth below.
[2017-02-08] MEDS ORDERED: Magnesium Sulfate 2 GM in D5% in Water 100 ML IVPB ONE (08:44)
[2017-02-08] MEDS ORDERED: 0.9 % Sodium Chloride 1,000 ML IVC SCH (09:00)
[2017-02-08] MEDS: Melatonin 3 MG TABLET PO PRN (22:05)
[2017-02-09] MEDS: *HR* Heparin 5,000 UNIT/ML VIAL SQ SCH ×3 (06:27→22:06)
[2017-02-09] MEDS: Tolterodine LA (24 HR) 2 MG CAP.ER.24H PO SCH (07:23)
[2017-02-09] MEDS: Insulin LISPRO 300 UNITS/3 ML VIAL SQ SCH ×4 (07:23→22:07)
[2017-02-09 08:33] LABS: Basophils % 0.8 %; Eosinophils # 0.2 K/mcL (0.0-0.6); Hematocrit 37.8 % (35.3-44.9); Hemoglobin 12.7 g/dL (11.5-15.4); Immature Granulocytes % 0.6 % (0-4); Lymphocytes # 1.9 K/mcL (0.6-4.6); Lymphocytes % 39.6 %; Mean Corpuscular HGB Conc 33.6 g/dL (31.6-35.5); Mean Corpuscular Hemoglobin 29.3 pg (28.0-33.3); Mean Corpuscular Volume 87.1 fL (83.0-100.0); Mean Platelet Volume 10.6 fL (9.4-12.4); Monocytes # 0.5 K/mcL (0.0-1.3); Monocytes % 10.7 %; Neutrophils # 2.1 K/mcL (1.6-8.9); Platelet Count 180 K/mcL (140-400); Red Blood Count 4.34 M/mcL (3.82-4.97); Segmented Neutrophils % 44.3 %
[2017-02-09] MEDS: Insulin DETEMIR 100 UNIT/ML X5UNITS SQ SCH (08:46)
[2017-02-09 08:51] LABS: BUN/Creatinine Ratio 22 (6-26); Blood Urea Nitrogen 16 mg/dL (7-20); Calcium 8.2 mg/dL (8.6-10.8); Carbon Dioxide 27 mEq/L (19-29); Chloride 104 mEq/L (98-109); Glucose 192 mg/dL (70-99); Magnesium 1.1 mg/dL (1.6-2.6); Osmolality,Calculated 292 (280-300); Sodium 138 mEq/L (136-145); eGFR For African Americans > 60 (> 60); eGFR For Non-African Americans > 60 (> 60)
--- NOTE | 2017-02-09 09:24 | Internal Med Progress Note ---
<Morenita Bailey - Last Filed: 02/09/17 11:21> Date of Encounter: 02/09/17 Time of Encounter: 09:22 - Assessment and plan (1) Sepsis Current Visit: Yes Status: Acute Assessment and plan: Patient presented to hospital with temp 102.6, HR 126, and RR 26 Lactic acid 1.3 UA revealed UTI Blood culture and urine culture positive for E. coli 02/09/17 Continue ceftrixone (day#4) No flank tenderness. We do not suspect pyelonephritis. Patient is afebrile x 48 hours Leukocytosis has resolved Will repeat blood cultures today. Results pending Discharge patient on oral abx after 5 days of IV abx Monitor patient closely Patient is high risk due to sepsis Qualifiers: Sepsis type: Escherichia coli Qualified Code(s): A41.51 - Sepsis due to Escherichia coli [E. coli] (2) Bacteremia due to Escherichia coli Current Visit: Yes Status: Acute Assessment and plan: See plan as above (3) UTI (urinary tract infection) Current Visit: Yes Status: Acute Assessment and plan: Plan as above Qualifiers: Urinary tract infection type: acute cystitis Hematuria presence: with hematuria Qualified Code(s): N30.01 - Acute cystitis with hematuria (4) Hypomagnesemia Current Visit: Yes Status: Acute Assessment and plan: Magnesium MgSO4 2 g IV today Will monitor (5) Acute kidney injury Current Visit: Yes Status: Resolved Assessment and plan: Resolved Continue IVF Monitor renal function (6) Diabetes Current Visit: Yes Status: Acute Assessment and plan: Patient's glucose 392 upon presentation to hospital A1C is 13.7 Patient admits to peripheral neuropathy Discussed diet and exercise to control blood sugars Patient verbalized understanding She will require outpatient screening for nephropathy and retinopathy 02/08/17 Fasting glucose 205 today Levemir 22 SQ daily, Low dose SS ACHS 02/09/17 Fasting glucose 192 today Levemir 22 SQ daily, Low dose SS ACHS Qualifiers: Diabetes mellitus type: type 2 Diabetes mellitus complication status: with unspecified complications Diabetes mellitus longitudinal float operator insulin use: with longitudinal float operator use Qualified Code(s): E11.8 - Type 2 diabetes mellitus with unspecified complications; Z79.4 - exterminator helper termite (current) use of insulin (7) Hypertension Current Visit: Yes Status: Acute Assessment and plan: Stable at this time, 118/78 Continue to hold valsartan Will restart should BP become elevated Qualifiers: Hypertension type: essential hypertension Qualified Code(s): I10 - Essential (primary) hypertension (8) Tobacco use Current Visit: Yes Status: Acute (9) DVT prophylaxis Current Visit: Yes Status: Acute Assessment and plan: Heparin 5,000 SQ - Time Spent With Patient 25 - 35 minutes (30 minutes including time with patient and coordinating care) - Subjective Interval history: Patient reports that she is feeling much better today. She states that she is having some abdominal cramping that she attributes to constipation. She had one bowel movement yesterday after using Miralax. No other complaints. - Constitutional Vitals: Temp Pulse Resp BP Pulse Ox 97.6 F 68 18 135/77 96 02/09/17 06:59 02/09/17 06:59 02/09/17 06:59 02/09/17 06:59 02/09/17 06:59 General appearance: Present: A&O X 3, morbidly obese, pleasant, no acute distress, answers questions appropriately - Head Head exam: Present: atraumatic, normocephalic - Eye Eye exam: Present: EOMI, PERRL, conjuntiva pink, sclera anicteric Pupils: Present: PERRL - Neck Neck exam general surgery: Present: supple, trachea midline. Absent: lymphadenopathy - Respiratory Respiratory exam: Present: CTAB. Absent: accessory muscle use, rales, rhonchi, wheezes - Cardiovascular Cardiovascular exam: Present: RRR, +S1, +S2. Absent: diastolic murmur, gallop, rubs, systolic murmur - GI/Abdominal GI/Abdominal exam: Present: normal bowel sounds, soft, no peritoneal signs. Absent: distended, tenderness - Extremities Exam Extremities exam: Present: warm, radial pulses palpable and symetrical. Absent : calf tenderness, cyanotic, pedal edema - Back Exam Back exam: Absent: CVA tenderness (L), CVA tenderness (R) - Neurological Exam Neurological exam: Present: CN II-XII intact, oriented X3, no focal deficits. Absent: facial droop, speech deficit - Skin Skin exam: Present: dry, intact Internal Medicine: Result - Labs CBC & Chem 7: 02/09/17 07:49 02/09/17 07:49 Labs: Short CBC 02/09/17 Range/Units 07:49 WBC 4.8 (4.3-11.1) K/mcL Hgb 12.7 (11.5-15.4) g/dL Hct 37.8 (35.3-44.9) % Plt Count 180 (140-400) K/mcL Neutrophils # 2.1 (1.6-8.9) K/mcL BMP 02/09/17 07:49 Sodium 138 Potassium 4.0 Chloride 104 Carbon Dioxide 27 BUN 16 Creatinine 0.73 Glucose 192 H Calcium 8.2 L - Impressions Chest X-Ray 02/06/17 18:01 IMPRESSION: No acute process. D/ / Sara Thompson MD / Sara Thompson MD Interpreting Provider: Sara Thompson MD Consult Discharge Plan - Plan Referrals: Vern Carmichael DO [Primary Care Provider] - 02/17/17 10:30 am (Please follow up as schedule...Please take discharge paper works and lab works...) <Rai Khalil P - Last Filed: 02/09/17 15:26> - Constitutional Vitals: Temp Pulse Resp BP Pulse Ox 98.1 F 75 18 111/77 94 L 02/09/17 10:54 02/09/17 10:54 02/09/17 10:54 02/09/17 10:54 02/09/17 10:54 Internal Medicine: Result - Labs CBC & Chem 7: 02/09/17 07:49 02/09/17 07:49 Labs: Short CBC 02/09/17 Range/Units 07:49 WBC 4.8 (4.3-11.1) K/mcL Hgb 12.7 (11.5-15.4) g/dL Hct 37.8 (35.3-44.9) % Plt Count 180 (140-400) K/mcL Neutrophils # 2.1 (1.6-8.9) K/mcL BMP 02/09/17 07:49 Sodium 138 Potassium 4.0 Chloride 104 Carbon Dioxide 27 BUN 16 Creatinine 0.73 Glucose 192 H Calcium 8.2 L - Attending Attestation I examined this patient and my medical decision-making was reviewed with the COLOR PASTE MIXER/PA/Advanced Practice Nurse/Resident Physician. I agree with the documented findings, disposition and treatment plan as described except to the extent set forth below. will continue ceftriaxone for 5 days all together will get ECHO discussed about bariatric surgery. she is not keen
[2017-02-09] MEDS: Budesonide/Formoterol 80/4.5 MDI IH SCH ×2 (09:41→22:30)
[2017-02-09] MEDS: Melatonin 3 MG TABLET PO PRN (22:06)
[2017-02-10] MEDS: *HR* Heparin 5,000 UNIT/ML VIAL SQ SCH ×3 (05:31→21:20)
[2017-02-10 05:59] LABS: Basophils % 0.7 %; Eosinophils # 0.2 K/mcL (0.0-0.6); Eosinophils % 4.4 %; Hematocrit 38.8 % (35.3-44.9); Hemoglobin 13.2 g/dL (11.5-15.4); Immature Granulocytes % 1.1 % (0-4); Immature Platelets 4.5 % (1.1-6.1); Lymphocytes # 2.2 K/mcL (0.6-4.6); Lymphocytes % 39.7 %; Mean Corpuscular Hemoglobin 29.5 pg (28.0-33.3); Mean Corpuscular Volume 86.8 fL (83.0-100.0); Mean Platelet Volume 10.4 fL (9.4-12.4); Monocytes # 0.5 K/mcL (0.0-1.3); Monocytes % 8.2 %; Neutrophils # 2.5 K/mcL (1.6-8.9); Platelet Count 216 K/mcL (140-400); Red Blood Count 4.47 M/mcL (3.82-4.97); Red Cell Distribution Width 12.1 % (11.5-14.5); Segmented Neutrophils % 45.9 %
[2017-02-10 06:13] LABS: BUN/Creatinine Ratio 20 (6-26); Blood Urea Nitrogen 16 mg/dL (7-20); Calcium 8.6 mg/dL (8.6-10.8); Carbon Dioxide 26 mEq/L (19-29); Chloride 106 mEq/L (98-109); Glucose 202 mg/dL (70-99); Magnesium 1.2 mg/dL (1.6-2.6); Osmolality,Calculated 295 (280-300); Potassium 4.5 mEq/L (3.5-4.5); Sodium 139 mEq/L (136-145); eGFR For African Americans > 60 (> 60); eGFR For Non-African Americans > 60 (> 60)
[2017-02-10 06:23] LABS: Platelet Estimate Normal (Normal); Reactive Lymphocytes Present (Not Present)
[2017-02-10] MEDS: Insulin DETEMIR 100 UNIT/ML X5UNITS SQ SCH (09:39)
[2017-02-10] MEDS: Tolterodine LA (24 HR) 2 MG CAP.ER.24H PO SCH (09:39)
[2017-02-10] MEDS: Insulin LISPRO 300 UNITS/3 ML VIAL SQ SCH ×4 (09:40→21:17)
[2017-02-10] MEDS ORDERED: Magnesium Sulfate 2 GM in D5% in Water 100 ML IVPB ONE (11:34)
[2017-02-10] MEDS: Budesonide/Formoterol 80/4.5 MDI IH SCH ×2 (11:34→20:27)
--- NOTE | 2017-02-10 17:04 | Internal Med Progress Note ---
Date of Encounter: 02/10/17 Time of Encounter: 17:02 - Assessment and plan (1) Sepsis Current Visit: Yes Status: Acute Assessment and plan: Patient presented to hospital with temp 102.6, HR 126, and RR 26 Lactic acid 1.3 UA revealed UTI Blood culture and urine culture positive for E. coli 02/09/17 Continue ceftrixone (day#4) No flank tenderness. We do not suspect pyelonephritis. Patient is afebrile x 48 hours Leukocytosis has resolved Will repeat blood cultures today. Results pending Discharge patient on oral abx after 5 days of IV abx Monitor patient closely 02/10/2017 Day 5 ceftriaxone Ecoli bacteremia secondary to urosepsis doing well had some chills and rigors preferred to stay one more day. Qualifiers: Sepsis type: Escherichia coli Qualified Code(s): A41.51 - Sepsis due to Escherichia coli [E. coli] (2) Bacteremia due to Escherichia coli Current Visit: Yes Status: Acute Assessment and plan: See plan as above (3) UTI (urinary tract infection) Current Visit: Yes Status: Acute Assessment and plan: Plan as above Qualifiers: Urinary tract infection type: acute cystitis Hematuria presence: with hematuria Qualified Code(s): N30.01 - Acute cystitis with hematuria (4) Diabetes Current Visit: Yes Status: Acute Assessment and plan: Patient's glucose 392 upon presentation to hospital A1C is 13.7 Patient admits to peripheral neuropathy Discussed diet and exercise to control blood sugars Patient verbalized understanding She will require outpatient screening for nephropathy and retinopathy 02/08/17 Fasting glucose 205 today Levemir 22 SQ daily, Low dose SS ACHS 02/09/17 Fasting glucose 192 today Levemir 22 SQ daily, Low dose SS ACHS Qualifiers: Diabetes mellitus type: type 2 Diabetes mellitus complication status: with unspecified complications Diabetes mellitus termite helper insulin use: with correction use Qualified Code(s): E11.8 - Type 2 diabetes mellitus with unspecified complications; Z79.4 - alf (current) use of insulin - Subjective Interval history: seen and examined. has some chills and rigors. but felt much better as compare to yesterday. preferred to stay one more day. - Constitutional Vitals: Temp Pulse Resp BP Pulse Ox 97.6 F 74 17 119/81 93 L 02/10/17 15:55 02/10/17 15:55 02/10/17 15:55 02/10/17 15:55 02/10/17 15:55 General appearance: Present: A&O X 3, morbidly obese, pleasant, no acute distress, answers questions appropriately - Head Head exam: Present: atraumatic, normocephalic - Eye Eye exam: Present: PERRL, conjuntiva pink, sclera anicteric Pupils: Present: PERRL - Neck Neck exam general surgery: Present: supple, trachea midline. Absent: lymphadenopathy - Respiratory Respiratory exam: Present: CTAB. Absent: accessory muscle use, rales, rhonchi, wheezes - Cardiovascular Cardiovascular exam: Present: RRR, +S1, +S2. Absent: diastolic murmur, gallop, rubs, systolic murmur - GI/Abdominal GI/Abdominal exam: Present: normal bowel sounds, soft, no peritoneal signs. Absent: distended, tenderness - Extremities Exam Extremities exam: Present: warm, radial pulses palpable and symetrical. Absent : calf tenderness, cyanotic, pedal edema - Neurological Exam Neurological exam: Present: CN II-XII intact, oriented X3, no focal deficits. Absent: pronater drift, facial droop, speech deficit - Skin Skin exam: Present: dry, intact Internal Medicine: Result - Labs CBC & Chem 7: 02/10/17 05:37 02/10/17 05:37 Labs: Short CBC 02/10/17 Range/Units 05:37 WBC 5.5 (4.3-11.1) K/mcL Hgb 13.2 (11.5-15.4) g/dL Hct 38.8 (35.3-44.9) % Plt Count 216 (140-400) K/mcL Neutrophils # 2.5 (1.6-8.9) K/mcL BMP 02/10/17 05:37 Sodium 139 Potassium 4.5 Chloride 106 Carbon Dioxide 26 BUN 16 Creatinine 0.80 Glucose 202 H Calcium 8.6 Consult Discharge Plan - Plan Referrals: Vern Carmichael DO [Primary Care Provider] - 02/17/17 10:30 am (Please follow up as schedule...Please take discharge paper works and lab works...)
[2017-02-10] MEDS ORDERED: Insulin DETEMIR 100 UNIT/ML X5UNITS SQ SCH (21:00)
[2017-02-11] MEDS: *HR* Heparin 5,000 UNIT/ML VIAL SQ SCH ×2 (06:06→14:25)
[2017-02-11 06:49] LABS: Basophils # 0.1 K/mcL (0.0-0.2); Eosinophils # 0.3 K/mcL (0.0-0.6); Eosinophils % 4.4 %; Hematocrit 38.1 % (35.3-44.9); Hemoglobin 13.1 g/dL (11.5-15.4); Immature Granulocytes % 1.6 % (0-4); Lymphocytes # 2.3 K/mcL (0.6-4.6); Lymphocytes % 39.5 %; Mean Corpuscular HGB Conc 34.4 g/dL (31.6-35.5); Mean Corpuscular Volume 87.2 fL (83.0-100.0); Mean Platelet Volume 10.7 fL (9.4-12.4); Monocytes # 0.6 K/mcL (0.0-1.3); Monocytes % 9.8 %; Neutrophils # 2.5 K/mcL (1.6-8.9); Platelet Count 211 K/mcL (140-400); Red Blood Count 4.37 M/mcL (3.82-4.97); Red Cell Distribution Width 12.1 % (11.5-14.5); Segmented Neutrophils % 43.7 %
[2017-02-11 07:09] LABS: Alanine Aminotransferase 80 Units/L (0-55); Albumin 2.4 g/dL (3.5-5.0); Albumin/Globulin Ratio 0.6 (1.1-2.2); Alkaline Phosphatase 92 Units/L (38-126); Aspartate Amino Transferase 79 Units/L (5-34); BUN/Creatinine Ratio 19 (6-26); Bilirubin,Total 0.4 mg/dL (0.2-1.2); Blood Urea Nitrogen 14 mg/dL (7-20); Calcium 8.8 mg/dL (8.6-10.8); Carbon Dioxide 25 mEq/L (19-29); Chloride 105 mEq/L (98-109); Globulin 3.8 g/dL (2.4-3.5); Glucose 171 mg/dL (70-99); Osmolality,Calculated 295 (280-300); Potassium 4.2 mEq/L (3.5-4.5); Sodium 140 mEq/L (136-145); Total Protein 6.2 g/dL (6.0-8.3); eGFR For African Americans > 60 (> 60); eGFR For Non-African Americans > 60 (> 60)
[2017-02-11] MEDS: Budesonide/Formoterol 80/4.5 MDI IH SCH (07:59)
[2017-02-11] MEDS: Tolterodine LA (24 HR) 2 MG CAP.ER.24H PO SCH (08:00)
[2017-02-11] MEDS: Insulin LISPRO 300 UNITS/3 ML VIAL SQ SCH ×2 (08:00→12:12)
[2017-02-11] MEDS: Insulin DETEMIR 100 UNIT/ML X5UNITS SQ SCH (08:01)
--- NOTE | 2017-02-11 10:18 | Internal Med Progress Note ---
Date of Encounter: 02/11/17 Time of Encounter: 10:18 - Constitutional Vitals: Temp Pulse Resp BP Pulse Ox 97.8 F 76 18 128/79 96 02/11/17 07:07 02/11/17 07:07 02/11/17 08:00 02/11/17 07:07 02/11/17 08:05 General appearance: Present: A&O X 3, morbidly obese, pleasant, no acute distress, answers questions appropriately Internal Medicine: Result - Labs CBC & Chem 7: 02/11/17 05:49 02/11/17 05:49 Labs: Short CBC 02/11/17 Range/Units 05:49 WBC 5.7 (4.3-11.1) K/mcL Hgb 13.1 (11.5-15.4) g/dL Hct 38.1 (35.3-44.9) % Plt Count 211 (140-400) K/mcL Neutrophils # 2.5 (1.6-8.9) K/mcL BMP 02/11/17 05:49 Sodium 140 Potassium 4.2 Chloride 105 Carbon Dioxide 25 BUN 14 Creatinine 0.73 Glucose 171 H Calcium 8.8 Liver Function 02/11/17 Range/Units 05:49 Total Bilirubin 0.4 (0.2-1.2) mg/dL AST 79 H (5-34) Units/L ALT 80 H (0-55) Units/L Alkaline Phosphatase 92 (38-126) Units/L Albumin 2.4 L (3.5-5.0) g/dL Consult Discharge Plan - Plan Referrals: Vern Carmichael DO [Primary Care Provider] - 02/17/17 10:30 am (Please follow up as schedule...Please take discharge paper works and lab works...)
[2017-02-11 11:06] VITALS: BP 114/76
[2017-02-11] MEDS ORDERED: Magnesium Sulfate 2 GM in D5% in Water 100 ML IVPB ONE (11:22)
[2017-02-11] MEDS ORDERED: levoFLOXacin 500 MG TABLET PO SCH ×2 (11:30→13:14)
--- NOTE | 2017-02-11 12:25 | Discharge Summary ---
Date of Encounter: 02/11/17 Time of Encounter: 12:23 - Discharge Diagnosis (1) Sepsis Priority: Primary Status: Resolved Qualifiers: Sepsis type: Escherichia coli Qualified Code(s): A41.51 - Sepsis due to Escherichia coli [E. coli] (2) Bacteremia due to Escherichia coli Priority: Primary Status: Acute (3) UTI (urinary tract infection) Priority: Primary Status: Acute Qualifiers: Urinary tract infection type: acute cystitis Hematuria presence: with hematuria Qualified Code(s): N30.01 - Acute cystitis with hematuria (4) Hypomagnesemia Priority: Secondary Status: Acute (5) Hypertension Priority: Secondary Status: Chronic Qualifiers: Hypertension type: essential hypertension Qualified Code(s): I10 - Essential (primary) hypertension (6) Acute kidney injury Priority: Secondary Status: Resolved (7) Diabetes Priority: Secondary Status: Chronic Qualifiers: Diabetes mellitus type: type 2 Diabetes mellitus complication status: with unspecified complications Diabetes mellitus senior living insulin use: with director long term care use Qualified Code(s): E11.8 - Type 2 diabetes mellitus with unspecified complications; Z79.4 - terminal makeup operator (current) use of insulin (8) Tobacco use Priority: Secondary Status: Chronic (9) Upper respiratory infection Priority: Secondary Status: Resolved Qualifiers: URI type: unspecified viral URI Qualified Code(s): J06.9 - Acute upper respiratory infection, unspecified; B97.89 - Other viral agents as the cause of diseases classified elsewhere (10) COPD (chronic obstructive pulmonary disease) Priority: Secondary Status: Chronic Qualifiers: COPD type: unspecified COPD Qualified Code(s): J44.9 - Chronic obstructive pulmonary disease, unspecified - Discharge Medications Prescriptions: Levofloxacin [Levaquin] 750 mg PO DAILY #3 tablet Home Medications: Atorvastatin [Lipitor] 40 mg PO HS 05/23/16 [History] Diclofenac Potassium 50 mg PO TID PRN 05/23/16 [History] Fluticasone Propionate Nasal [Flonase] 2 spray NS DAILY PRN 05/23/16 [History] Insulin Glargine,Hum.rec.anlog [Lantus Solostar] 22 unit SQ DAILY 05/23/16 [ History] Multivitamin [Multivitamins] 1 tab PO DAILY 05/23/16 [History] Albuterol Sulfate [Proventil Hfa] 1 - 2 puff IH Q6H PRN 02/06/17 [History] Budesonide/Formoterol 80/4.5 [Symbicort 80/4.5] 2 puff IH BID 02/06/17 [History ] Dicyclomine [Bentyl] 10 mg PO QID PRN 02/06/17 [History] Ketoconazole Shampoo [Nizoral Shampoo] 1 appl TP 3XW 02/06/17 [History] Tolterodine Tartrate [Detrol] 1 mg PO BID 02/06/17 [History] Valsartan/Hydrochlorothiazide [Diovan Hct 320-25 mg Tablet] 1 each PO DAILY 08/17 [History] Levofloxacin [Levaquin] 750 mg PO DAILY #3 tablet 02/11/17 [Rx] Allergies/Adverse Reactions: Allergies Oxycodone [From Percocet] Adverse Reaction (Verified 02/06/17 17:30) Fainting Date of admission: 02/07/17 04:54 Primary care physician: Vern Carmichael Discharging clinician: Bill Camp Anticipated date of discharge: 02/11/17 - Patient Status Disposition: Home, Self-Care Condition: Good Functional capacity at discharge: independent ambulation Overall status at discharge: patient is back to baseline - Discharge Instructions Follow Up With: Vern Carmichael DO [Primary Care Provider] - 02/17/17 10:30 am (Please follow up as schedule...Please take discharge paper works and lab works...) - Diet and Activity Activity: resume usual activities as tolerated, other (Off work till 02/13) Diet: advance to your usual diet Hospital course: Ms. Bob is a 51 year old female with hx of insulin requiring diabetes and HTN presented to the ED with complaints of dyspnea, fever and chills. She was found to have sepsis related to UTI and URI and subsequently admitted for further evaluation and treatment. Ms. Bob was admitted to [facility]. She was started on IV fluids and IV abx. She was noted to have JOE and Valsartan/HCTZ was held. Her renal function improved to baseline normal. Her urine and blood cultures both were positive for E. coli. She was continued on Ceftriaxone IV. Her leukocytosis improved with treatment and she remained afebrile with stable BP. She continued to have some chills and remained in the hospital due to these symptoms and the need to continue IV abx. Her magnesium was low and replaced IV. She had some constipation which improved by discharge. On 02/11 she was feeling much better. She was afebrile and back to baseline. She was felt stable for discharge home. Time spent discussing smoking cessation with patient: 3 to 10 minutes - Time Spent with Patient Total time spent providing and/or coordinating discharge services: 40min - Constitutional Vitals: Temp Pulse Resp BP Pulse Ox 97.9 F 72 16 114/76 96 02/11/17 11:05 02/11/17 11:05 02/11/17 11:05 02/11/17 11:05 02/11/17 11:05 General appearance: Present: A&O X 3, morbidly obese, pleasant, answers questions appropriately - Head Head exam: Present: normocephalic - Eye Eye exam: Present: EOMI, conjuntiva pink - ENT ENT exam: Present: mucous membranes moist - Respiratory Respiratory exam: Present: decreased breath sounds, CTAB - Cardiovascular Cardiovascular exam: Present: RRR. Absent: tachycardia - GI/Abdominal GI/Abdominal exam: Present: normal bowel sounds, soft - Extremities Exam Extremities exam: Present: warm. Absent: pedal edema - Neurological Exam Neurological exam: Present: alert, oriented X3 - Psychiatric Psychiatric exam: Present: normal affect, normal mood - Skin Skin exam: Present: dry, warm. Absent: rash
[2017-02-11] MEDS ORDERED: levoFLOXacin 250 MG TABLET PO ONE (14:19)
[2017-02-12] MEDS ORDERED: levoFLOXacin 500 MG TABLET PO SCH (13:00)
== END 2017-02-11 16:44 | disposition home or self-care (01) | DRG 872 ==
LOC: 2ANU 16:44 → EMEROO 16:44 → 2ANU 23:08 → SUATTDRO 02-07 04:54
PROVIDERS: ADMIT Hospitalist; ATTEND Internal Medicine